=== PATIENT | male | born 1950 | race Caucasian/White ===

== ENCOUNTER 2017-09-03 04:28 | Inpatient (IN) ==
[2017-09-03] MEDS ORDERED: DIAZEPAM 5 MG TABLET PO ONE (06:00)
[2017-09-03] MEDS ORDERED: diphenhydrAMINE CAP 25 MG CAPSULE PO ONE (06:00)
[2017-09-03] MEDS ORDERED: ASPIRIN 325 MG TABLET PO ONE (06:00)
[2017-09-03] MEDS ORDERED: POTASSIUM CHLORIDE RIDER 10 MEQ in PREMIX 1 EACH IV PRN (06:00)
[2017-09-03] MEDS ORDERED: MAGNESIUM SULF RIDER 2 GM in PREMIX 1 EACH IV PRN (06:00)
[2017-09-03] MEDS ORDERED: DIAZEPAM 5 MG TABLET ONE (06:36)
[2017-09-03] MEDS ORDERED: diphenhydrAMINE CAP 25 MG CAPSULE ONE (06:37)
[2017-09-03] MEDS: SODIUM CHLORIDE 0.9% 1,000 ML IV SCH ×3 (06:50→14:24)
[2017-09-03 06:53] LABS: Basophils # 0.1 10*3/uL (0.0-0.2); Basophils % 0.5 % (0.0-0.8); Eosinophils # 0.4 10*3/uL (0.0-0.87); Eosinophils % 3.4 % (0.00-10.9); Hematocrit 41.5 VOL% (42.0-52.0); Hemoglobin 14.5 GM/DL (14.0-18.0); Immature Granulocytes % 0.7 %; Immature Granulocytes Absolute 0.09 #; Lymphocytes # 1.7 10*3/uL (1.4-4.0); Lymphocytes % 13.8 % (21.2-54.2); Mean Corpuscular HGB Conc 34.9 GM/DL (32-36); Mean Corpuscular Hemoglobin 31 PG (27-34); Mean Corpuscular Volume 89.4 FL (87-102); Mean Platelet Volume 10.3 FL (9.6-12.0); Monocytes # 0.9 10*3/uL (0.11-0.8); Monocytes % 6.8 % (1.7-12.7); Neutrophils # 9.4 10*3/uL (1.4-7.4); Neutrophils % 74.8 % (38.7-73.9); Platelet Count 284 T/CUMM (130-400); Red Blood Count 4.64 MC/CUMM (3.8-5.5); Red Cell Distribution Width 13.8 % (9.3-17.3); White Blood Count 12.6 T/CUMM (4-12)
[2017-09-03] MEDS ORDERED: fentaNYL 100 MCG/2 ML VIAL ONE (07:01)
[2017-09-03] MEDS ORDERED: MIDAZOLAM 2 MG/2 ML VIAL ONE (07:01)
[2017-09-03] MEDS ORDERED: LIDOCAINE 1% 20 ML VIAL ONE (07:01)
[2017-09-03] MEDS ORDERED: VERAPAMIL 5 MG/2 ML VIAL ONE (07:06)
[2017-09-03] MEDS ORDERED: NITROGLYCERIN DRIP 50 MG/250 ML BOTTLE IV ONE (07:06)
[2017-09-03] MEDS ORDERED: DEXTROSE 50% 25 GM/50 ML VIAL IV PRN ×2 (07:37→10:20)
[2017-09-03] MEDS ORDERED: ACETAMINOPHEN 325 MG TABLET PO PRN (07:37)
[2017-09-03] MEDS ORDERED: GLUCAGON 1 MG VIAL IM PRN ×2 (07:37→10:20)
[2017-09-03] MEDS ORDERED: ZALEPLON 5 MG CAPSULE PO PRN (07:47)
[2017-09-03] MEDS ORDERED: ALUMINUM/MAGNES/SIMETH MAX STR 30 ML UDCUP PO PRN (07:47)
[2017-09-03] MEDS ORDERED: ASPIRIN EC 81 MG TABLET PO SCH (09:00)
[2017-09-03] MEDS ORDERED: SAW PALMETTO FRUIT 450 MG PO SCH (09:00)
[2017-09-03] MEDS ORDERED: ACETAMINOPHEN 325 MG TABLET ONE (09:45)
[2017-09-03] MEDS ORDERED: ALBUTEROL 2.5 MG/3 ML NEB RESP TX PRN (13:00)
[2017-09-03] MEDS ORDERED: PNEUMOCOCCAL VACCINE (13 VALENT) 0.5 ML SYRINGE IM ONE (13:00)
[2017-09-03] MEDS: tiZANidine 4 MG TABLET PO SCH ×3 (13:02→20:41)
[2017-09-03] MEDS: INSULIN REGULAR 100 UNIT/ML SUBCUT SCH ×3 (13:13→21:02)
[2017-09-03] MEDS: LISINOPRIL 5 MG TABLET PO SCH ×2 (13:34→20:41)
[2017-09-03] MEDS: ASPIRIN EC 81 MG TABLET PO SCH (13:35)
[2017-09-03] MEDS: MAGNESIUM OXIDE 400 MG TABLET PO SCH (13:35)
[2017-09-03] MEDS: METOPROLOL TARTRATE 25 MG TABLET PO SCH ×2 (13:35→20:41)
[2017-09-03] MEDS: MONTELUKAST 10 MG TABLET PO SCH (13:35)
[2017-09-03] MEDS: BUDESONIDE/FORMOTEROL 160-4.5 INHALER 6 GM INH SCH ×2 (13:37→20:43)
[2017-09-03 15:00] LABS: Basophils % 0.4 % (0.0-0.8); Eosinophils # 0.4 10*3/uL (0.0-0.87); Eosinophils % 4.4 % (0.00-10.9); Hematocrit 39.2 VOL% (42.0-52.0); Hemoglobin 13.5 GM/DL (14.0-18.0); Immature Granulocytes % 0.8 %; Immature Granulocytes Absolute 0.08 #; Lymphocytes # 1.7 10*3/uL (1.4-4.0); Mean Corpuscular HGB Conc 34.4 GM/DL (32-36); Mean Corpuscular Hemoglobin 31 PG (27-34); Mean Corpuscular Volume 90.7 FL (87-102); Mean Platelet Volume 10.5 FL (9.6-12.0); Monocytes # 0.7 10*3/uL (0.11-0.8); Monocytes % 7.7 % (1.7-12.7); Neutrophils # 6.6 10*3/uL (1.4-7.4); Neutrophils % 68.7 % (38.7-73.9); Platelet Count 273 T/CUMM (130-400); Red Blood Count 4.32 MC/CUMM (3.8-5.5); Red Cell Distribution Width 13.6 % (9.3-17.3); White Blood Count 9.6 T/CUMM (4-12)
[2017-09-03] MEDS ORDERED: HYDROCORTISONE 1% CREAM 28 GM TUBE TOP PRN (15:05)
[2017-09-03 15:28] LABS: Alanine Aminotransferase 23 U/L (16-61); Albumin 3.6 G/DL (3.4-5.0); Alkaline Phosphatase 53 U/L (45-117); Aspartate Amino Transferase 17 U/L (0-37); Bilirubin,Total < 0.39 MG/DL (0.2-1.0); Blood Urea Nitrogen 21 MG/DL (7-18); Calcium 8.6 MG/DL (8.5-10.1); Glucose 90 MG/DL (74-106); Osmolality,Calculated 277.7 MOS/KG (273-304); Potassium 4.4 MMOL/L (3.5-5.1); Sodium 138 MMOL/L (136-145); Total Protein 6.9 G/DL (6.4-8.3)
[2017-09-03] MEDS: CHLORHEXIDINE 4% SOLN 118 ML BOTTLE TOP SCH ×2 (16:15→20:43)
[2017-09-03] MEDS: CHLORHEXIDINE 0.12% ORAL RINSE 60 ML BOTTLE SWISH/SPIT SCH (20:43)
[2017-09-03] MEDS ORDERED: CLORAZEPATE 3.75 MG TABLET PO ONE (20:46)
[2017-09-03] MEDS ORDERED: ATORVASTATIN 40 MG TABLET PO SCH (21:00)
[2017-09-04 03:04] LABS: ABG HCO3 24.4 MMOL/L (20-26); ABG Oxygen Saturation 95.8 % (95-100); ABG PCO2 39.3 MM HG (35-48); ABG PH 7.404 (7.35-7.45); ABG PO2 77.4 MM HG (80-95)
[2017-09-04] MEDS ORDERED: PAPAVERINE 60 MG/2 ML VIAL ONE (04:40)
[2017-09-04] MEDS ORDERED: VANCOMYCIN 1,000 MG VIAL ONE (04:40)
[2017-09-04 05:20] LABS: Basophils # 0.1 10*3/uL (0.0-0.2); Basophils % 0.7 % (0.0-0.8); Eosinophils # 0.5 10*3/uL (0.0-0.87); Eosinophils % 4.3 % (0.00-10.9); Hematocrit 45.1 VOL% (42.0-52.0); Hemoglobin 15.7 GM/DL (14.0-18.0); Immature Granulocytes % 0.8 %; Lymphocytes # 1.8 10*3/uL (1.4-4.0); Lymphocytes % 14.9 % (21.2-54.2); Mean Corpuscular HGB Conc 34.8 GM/DL (32-36); Mean Corpuscular Hemoglobin 32 PG (27-34); Mean Corpuscular Volume 90.4 FL (87-102); Mean Platelet Volume 10.2 FL (9.6-12.0); Monocytes # 0.8 10*3/uL (0.11-0.8); Monocytes % 6.2 % (1.7-12.7); Neutrophils # 8.8 10*3/uL (1.4-7.4); Neutrophils % 73.1 % (38.7-73.9); Platelet Count 290 T/CUMM (130-400); Red Blood Count 4.99 MC/CUMM (3.8-5.5); Red Cell Distribution Width 13.6 % (9.3-17.3); White Blood Count 12.1 T/CUMM (4-12)
[2017-09-04] MEDS ORDERED: FAMOTIDINE 20 MG TABLET PO ONE (05:30)
[2017-09-04] MEDS ORDERED: LORazepam 1 MG TABLET PO ONE (05:30)
[2017-09-04] MEDS: LISINOPRIL 5 MG TABLET PO SCH ×2 (05:36→08:07)
[2017-09-04] MEDS: METOPROLOL TARTRATE 25 MG TABLET PO SCH ×2 (05:36→08:05)
[2017-09-04] MEDS: MAGNESIUM OXIDE 400 MG TABLET PO SCH ×2 (05:37→08:05)
[2017-09-04] MEDS: CHLORHEXIDINE 4% SOLN 118 ML BOTTLE TOP SCH ×2 (05:40→08:04)
[2017-09-04] MEDS: CHLORHEXIDINE 0.12% ORAL RINSE 60 ML BOTTLE SWISH/SPIT SCH ×3 (05:40→22:26)
[2017-09-04] MEDS ORDERED: TRANEXAMIC ACID 1,000 MG/10 ML VIAL IV ONE (05:42)
[2017-09-04] MEDS ORDERED: SUFentanil 250 MCG/5 ML AMP ONE (05:53)
[2017-09-04] MEDS ORDERED: MIDAZOLAM 10 MG/2 ML VIAL ONE ×2 (05:53)
[2017-09-04 05:55] LABS: PT Patient Result 10.5 SECS; Partial Thromboplastin Time 28.2 SECS (0-40)
[2017-09-04 05:56] LABS: Calcium 9.1 MG/DL (8.5-10.1); Magnesium 2.1 MG/DL (1.8-2.4); Osmolality,Calculated 274.8 MOS/KG (273-304); Potassium 4.9 MMOL/L (3.5-5.1)
[2017-09-04] MEDS ORDERED: CEFUROXIME INJ 1,500 MG in SYRINGE 1 EACH IV ONE (06:00)
[2017-09-04 07:31] LABS: ABG Base Excess -0.5 MMOL/L (-2.5-2.5); ABG PCO2 35.5 MM HG (35-48); ABG PH 7.425 (7.35-7.45); Glucose Heart Surgery 117 MG/DL (74-106); Hematocrit Heart Surgery 42.7 PERCENT (42-52); Hemoglobin Heart Surgery 13.9 G/DL (14.0-18.0); Ionized Calcium Arterial 1.08 MMOL/L (1.21-1.46); PCO2 Patient Temp Arterial 35.5 MMHG; PH Patient Temp Arterial 7.425; Patient Temperature 37 CELCIUS; Potassium Heart/CVR 4.3 MMOL/L (3.5-5.1); Sodium Heart/CVR 135 MMOL/L (135-145)
[2017-09-04] MEDS: ASPIRIN EC 81 MG TABLET PO SCH (08:04)
[2017-09-04] MEDS: INSULIN REGULAR 100 UNIT/ML SUBCUT SCH (08:04)
[2017-09-04] MEDS: MONTELUKAST 10 MG TABLET PO SCH (08:08)
[2017-09-04] MEDS: tiZANidine 4 MG TABLET PO SCH (08:08)
[2017-09-04] MEDS: BUDESONIDE/FORMOTEROL 160-4.5 INHALER 6 GM INH SCH (08:08)
[2017-09-04 08:30] LABS: Apearance,Urine CLEAR (Clear); Bilirubin,Urine Negative (Negative); Blood, Urine Small mg/dL (Negative); Glucose,Urine (UA) Negative (Negative); Ketones,Urine 20 mg/dL (Negative); Mucus,Urine Occasional /LPF (Occasional); Nitrite,Urine Negative (Negative); Protein,Urine Negative; RBC,Urine 1 /HPF (0-4); Squamous Epithelial Cell,Urine Occasional /HPF (0-10); Urine Color Yellow (Yellow); Urine Specific Gravity 1.017 (1.001-1.035); Urine Urobilinogen < 2.0 EU/DL (0.2-1.0); WBC,Urine 1 /HPF (0-6)
[2017-09-04] MEDS ORDERED: POTASSIUM CHLORIDE RIDER 100 ML IV ONE (08:54)
[2017-09-04 09:00] LABS: Hemoglobin Heart Surgery 9.4 G/DL (14.0-18.0); PCO2 Patient Temp Venous 46.2 MM HG; PH Patient Temp Venous 7.351; PO2 Patient Temp Venous 37.2 MM HG; Potassium Heart/CVR 5.5 MMOL/L (3.5-5.1); VBG Base Excess -0.1 MEQ/L (0-4); VBG Oxygen Saturation 74.4 %; VBG PCO2 50.9 MMHG (41-51); VBG PH 7.323; VBG PO2 42.7 MMHG (17-40)
[2017-09-04 09:31] LABS: Hematocrit Heart Surgery 32.4 PERCENT (42-52); Hemoglobin Heart Surgery 10.5 G/DL (14.0-18.0); PCO2 Patient Temp Venous 39.5 MM HG; PH Patient Temp Venous 7.398; PO2 Patient Temp Venous 34.6 MM HG; VBG Base Excess -0.3 MEQ/L (0-4); VBG HCO3 23.8 MEQ/L (24-28); VBG Oxygen Saturation 75.8 %; VBG PCO2 45.7 MMHG (41-51); VBG PH 7.355; VBG PO2 42.7 MMHG (17-40)
[2017-09-04 09:35] LABS: Potassium Heart/CVR 6.3 MMOL/L (3.5-5.1)
[2017-09-04] MEDS ORDERED: INSULIN REGULAR DRIP 100 ML IV ONE (09:56)
[2017-09-04 10:02] LABS: Hematocrit Heart Surgery 34.6 PERCENT (42-52); Hemoglobin Heart Surgery 11.2 G/DL (14.0-18.0); PCO2 Patient Temp Venous 45.6 MM HG; PH Patient Temp Venous 7.354; PO2 Patient Temp Venous 34.2 MM HG; Potassium Heart/CVR 6.2 MMOL/L (3.5-5.1); VBG Base Excess -0.4 MEQ/L (0-4); VBG HCO3 23.4 MEQ/L (24-28); VBG Oxygen Saturation 61.7 %; VBG PCO2 45.6 MMHG (41-51); VBG PH 7.354; VBG PO2 34.2 MMHG (17-40)
[2017-09-04 10:25] LABS: ABG Base Excess -2.5 MMOL/L (-2.5-2.5); ABG HCO3 22.4 MMOL/L (20-26); ABG Oxygen Saturation 99.9 % (95-100); ABG PCO2 41.9 MM HG (35-48); ABG PH 7.349 (7.35-7.45); ABG TCO2 20.6 MMOL/L (23-27); Glucose Heart Surgery 206 MG/DL (74-106); Hematocrit Heart Surgery 36.3 PERCENT (42-52); Hemoglobin Heart Surgery 11.8 G/DL (14.0-18.0); Ionized Calcium Arterial 1.36 MMOL/L (1.21-1.46); PCO2 Patient Temp Arterial 41.9 MMHG; PH Patient Temp Arterial 7.349; Patient Temperature 37 CELCIUS; Potassium Heart/CVR 5.1 MMOL/L (3.5-5.1); Sodium Heart/CVR 131 MMOL/L (135-145)
[2017-09-04] MEDS ORDERED: PHENYLEPHRINE DRIP 20 MG/250 ML PREMIX IV ONE (11:09)
[2017-09-04] MEDS ORDERED: LACTATED RINGERS 1,000 ML IV ONE (11:09)
[2017-09-04] MEDS ORDERED: ePHEDrine 50 MG/ML AMP ONE (11:09)
[2017-09-04] MEDS ORDERED: NITROGLYCERIN DRIP 50 MG/250 ML BOTTLE IV ONE (11:09)
[2017-09-04] MEDS ORDERED: ETOMIDATE 20 MG/10 ML VIAL IV ONE (11:09)
[2017-09-04] MEDS ORDERED: CALCIUM CHLORIDE 1,000 MG/10 ML VIAL IV ONE (11:09)
[2017-09-04] MEDS ORDERED: SODIUM CHLORIDE 0.9% 2,000 ML IV ONE (11:09)
[2017-09-04] MEDS ORDERED: ESMOLOL 100 MG/10 ML VIAL IV ONE (11:09)
[2017-09-04] MEDS ORDERED: SODIUM CHLORIDE 0.9% 250 ML IV ONE (11:09)
[2017-09-04] MEDS ORDERED: HEPARIN/NACL 0.9% 2 UNITS/ML 500 ML IV ONE (11:09)
[2017-09-04] MEDS ORDERED: SEVOFLURANE 1 UNIT/15 MINUTE INH ONE (11:10)
[2017-09-04] MEDS ORDERED: MINERAL OIL/PETROLATUM OPH OINT 3.5 GM TUBE ONE (11:10)
[2017-09-04] MEDS ORDERED: PROTAMINE SULFATE 50 MG/5 ML VIAL IV ONE ×2 (11:13→11:52)
[2017-09-04] MEDS: SODIUM CHLORIDE 0.45% 1,000 ML IV SCH (11:15)
[2017-09-04] MEDS ORDERED: CALCIUM CHLORIDE 1,000 MG/10 ML SYRINGE IV PRN (11:17)
[2017-09-04] MEDS ORDERED: NITROPRUSSIDE 100 MG in DEXTROSE 5% 250 ML IV PRN (11:17)
[2017-09-04] MEDS ORDERED: MAGNESIUM SULF RIDER 4 GM in PREMIX 1 EACH IV PRN (11:17)
[2017-09-04] MEDS ORDERED: ACETAMINOPHEN 650 MG SUPP RECTAL PRN (11:17)
[2017-09-04] MEDS ORDERED: POTASSIUM CHLORIDE RIDER 20 MEQ in PREMIX 1 EACH IV PRN (11:17)
[2017-09-04] MEDS ORDERED: PHENYLEPHRINE DRIP 40 MG/250 ML PREMIX IV PRN (11:17)
[2017-09-04] MEDS ORDERED: POTASSIUM CHLORIDE RIDER 10 MEQ in PREMIX 1 EACH IV PRN (11:17)
[2017-09-04] MEDS ORDERED: ONDANSETRON 4 MG/2 ML VIAL IV PRN (11:17)
[2017-09-04] MEDS ORDERED: VECURONIUM 10 MG VIAL IV PRN ×2 (11:17)
[2017-09-04] MEDS ORDERED: LACTATED RINGERS 250 ML IV PRN (11:17)
[2017-09-04] MEDS ORDERED: MORPHINE 10 MG/1 ML VIAL IV PRN (11:17)
[2017-09-04] MEDS ORDERED: MIDAZOLAM 2 MG/2 ML VIAL IV PRN (11:17)
[2017-09-04] MEDS ORDERED: MAGNESIUM SULF RIDER 2 GM in PREMIX 1 EACH IV PRN (11:17)
[2017-09-04] MEDS ORDERED: INSULIN REGULAR 100 UNIT/ML IV ONE (11:17)
[2017-09-04] MEDS ORDERED: INSULIN REGULAR 100 UNIT/ML IV PRN (11:17)
[2017-09-04] MEDS ORDERED: DEXTROSE 50% 25 GM/50 ML VIAL IV PRN ×2 (11:17)
[2017-09-04 11:23] LABS: ABG HCO3 22.7 MMOL/L (20-26); ABG Oxygen Saturation 95.4 % (95-100); ABG PCO2 42.4 MM HG (35-48); ABG PH 7.353 (7.35-7.45); ABG PO2 78.4 MM HG (80-95); ABG TCO2 21.2 MMOL/L (23-27); Glucose Heart Surgery 151 MG/DL (74-106); Hematocrit Heart Surgery 34.4 PERCENT (42-52); Hemoglobin Heart Surgery 11.1 G/DL (14.0-18.0); Potassium Heart/CVR 4.2 MMOL/L (3.5-5.1)
[2017-09-04] MEDS ORDERED: SODIUM CHLORIDE 0.45% 1,000 ML IV SCH (11:30)
[2017-09-04 11:32] LABS: Basophils # 0.1 10*3/uL (0.0-0.2); Basophils % 0.5 % (0.0-0.8); Eosinophils # 0.3 10*3/uL (0.0-0.87); Eosinophils % 1.7 % (0.00-10.9); Hematocrit 34.1 VOL% (42.0-52.0); Immature Granulocytes % 1.1 %; Immature Granulocytes Absolute 0.17 #; Lymphocytes # 1.2 10*3/uL (1.4-4.0); Mean Corpuscular HGB Conc 34.3 GM/DL (32-36); Mean Corpuscular Hemoglobin 32 PG (27-34); Mean Corpuscular Volume 92.4 FL (87-102); Mean Platelet Volume 10.2 FL (9.6-12.0); Monocytes # 0.7 10*3/uL (0.11-0.8); Monocytes % 4.4 % (1.7-12.7); Neutrophils # 13.1 10*3/uL (1.4-7.4); Neutrophils % 84.3 % (38.7-73.9); Red Cell Distribution Width 13.4 % (9.3-17.3); White Blood Count 15.5 T/CUMM (4-12)
[2017-09-04 11:35] LABS: Hemoglobin 11.7 GM/DL (14.0-18.0); Platelet Count 251 T/CUMM (130-400); Red Blood Count 3.69 MC/CUMM (3.8-5.5)
[2017-09-04 11:36] LABS: INR 1.1; PT Patient Result 11.8 SECS; Partial Thromboplastin Time 28.5 SECS (0-40)
[2017-09-04 11:45] LABS: CKMB % 9.2 %
[2017-09-04] MEDS: ALBUMIN 5% 12.5 GM in PREMIX 1 EACH IV PRN ×5 (11:45→21:10)
[2017-09-04 11:46] LABS: Troponin I Only 2.87 NG/ML (0.00-0.045)
[2017-09-04 11:53] LABS: Albumin 3.1 G/DL (3.4-5.0); Bilirubin,Total 0.8 MG/DL (0.2-1.0); Calcium 8.8 MG/DL (8.5-10.1); Potassium 4.6 MMOL/L (3.5-5.1); Total Protein 5.8 G/DL (6.4-8.3)
[2017-09-04] MEDS: LACTATED RINGERS 1,000 ML IV PRN ×3 (12:00→16:32)
[2017-09-04] MEDS: KETOROLAC 30 MG/1 ML VIAL IV SCH ×3 (13:05→22:32)
[2017-09-04 13:16] LABS: ABG Base Excess 0.5 MMOL/L (-2.5-2.5); ABG HCO3 25.5 MMOL/L (20-26); ABG Oxygen Saturation 96.5 % (95-100); ABG PCO2 42.4 MM HG (35-48); ABG PH 7.397 (7.35-7.45); ABG TCO2 26.8 MMOL/L (23-27); Glucose Heart Surgery 134 MG/DL (74-106); Hemoglobin Heart Surgery 12.8 G/DL (14.0-18.0); Potassium Heart/CVR 4.4 MMOL/L (3.5-5.1)
[2017-09-04] MEDS: MORPHINE 2 MG/1 ML SYRINGE IV PRN (14:50)
[2017-09-04] MEDS: MIDAZOLAM 10 MG/2 ML VIAL IV PRN ×3 (14:58→20:15)
[2017-09-04] MEDS ORDERED: PROPOFOL 1,000 MG/100 ML BOTTLE IV ONE (15:05)
[2017-09-04] MEDS: PROPOFOL 1,000 MG/100 ML BOTTLE IV SCH ×2 (15:48→20:53)
[2017-09-04 16:10] LABS: ABG Base Excess -0.8 MMOL/L (-2.5-2.5); ABG HCO3 24.6 MMOL/L (20-26); ABG Oxygen Saturation 97.6 % (95-100); ABG PCO2 43.8 MM HG (35-48); ABG PH 7.368 (7.35-7.45); ABG PO2 106.1 MM HG (80-95); Glucose Heart Surgery 158 MG/DL (74-106); Hemoglobin Heart Surgery 12.5 G/DL (14.0-18.0); Potassium Heart/CVR 4.7 MMOL/L (3.5-5.1)
[2017-09-04] MEDS: SODIUM CHLORIDE 0.9% 1,000 ML IV SCH (17:12)
[2017-09-04] MEDS ORDERED: AMIODARONE INJ 150 MG in DEXTROSE 5% 100 ML IV ONE (17:48)
[2017-09-04] MEDS ORDERED: AMIODARONE 450 MG/9 ML VIAL IV ONE (17:53)
[2017-09-04] MEDS ORDERED: AMIODARONE 150 MG/3 ML VIAL ONE (17:53)
[2017-09-04] MEDS ORDERED: AMIODARONE INJ 450 MG in DEXTROSE 5% 241 ML IV SCH (18:00)
[2017-09-04 18:44] LABS: ABG Base Excess -0.6 MMOL/L (-2.5-2.5); ABG HCO3 24.4 MMOL/L (20-26); ABG PCO2 41.5 MM HG (35-48); ABG PH 7.387 (7.35-7.45); ABG TCO2 25.7 MMOL/L (23-27); Glucose Heart Surgery 188 MG/DL (74-106); Hemoglobin Heart Surgery 12.8 G/DL (14.0-18.0); Potassium Heart/CVR 4.7 MMOL/L (3.5-5.1)
[2017-09-04] MEDS: INSULIN REGULAR DRIP 100 ML IV SCH (18:53)
[2017-09-04] MEDS ORDERED: DOBUTamine 500 MG/250 ML PREMIX IV SCH (19:30)
[2017-09-04 20:04] LABS: ABG Base Excess -2.5 MMOL/L (-2.5-2.5); ABG HCO3 22.4 MMOL/L (20-26); ABG Oxygen Saturation 96.7 % (95-100); ABG PCO2 39.3 MM HG (35-48); ABG PH 7.374 (7.35-7.45); ABG PO2 87.9 MM HG (80-95); ABG TCO2 23.6 MMOL/L (23-27); Glucose Heart Surgery 181 MG/DL (74-106); Hemoglobin Heart Surgery 13.1 G/DL (14.0-18.0); Potassium Heart/CVR 4.3 MMOL/L (3.5-5.1)
[2017-09-04] MEDS: CEFUROXIME INJ 1,500 MG in SYRINGE 1 EACH IV SCH (20:10)
[2017-09-04 20:38] LABS: CKMB % 7.2 %
[2017-09-04 20:40] LABS: Troponin I Only 3.64 NG/ML (0.00-0.045)
[2017-09-05] MEDS ORDERED: FUROSEMIDE 40 MG/4 ML VIAL IV ONE (00:08)
[2017-09-05] MEDS: ALBUMIN 5% 12.5 GM in PREMIX 1 EACH IV PRN ×3 (00:13→09:52)
[2017-09-05] MEDS: PROPOFOL 1,000 MG/100 ML BOTTLE IV SCH ×2 (00:53→05:19)
[2017-09-05 03:03] LABS: ABG Base Excess 0.8 MMOL/L (-2.5-2.5); ABG HCO3 25.1 MMOL/L (20-26); ABG Oxygen Saturation 96.9 % (95-100); ABG PCO2 40.4 MM HG (35-48); ABG PH 7.408 (7.35-7.45); ABG PO2 86.2 MM HG (80-95); ABG TCO2 21.8 MMOL/L (23-27); Glucose Heart Surgery 140 MG/DL (74-106); Hematocrit Heart Surgery 44.6 PERCENT (42-52); Hemoglobin Heart Surgery 14.6 G/DL (14.0-18.0); Potassium Heart/CVR 3.9 MMOL/L (3.5-5.1)
[2017-09-05 03:14] LABS: Basophils % 0.1 % (0.0-0.8); Hematocrit 32.9 VOL% (42.0-52.0); Hemoglobin 11.3 GM/DL (14.0-18.0); Immature Granulocytes % 0.7 %; Immature Granulocytes Absolute 0.14 #; Lymphocytes # 0.7 10*3/uL (1.4-4.0); Lymphocytes % 3.5 % (21.2-54.2); Mean Corpuscular HGB Conc 34.3 GM/DL (32-36); Mean Corpuscular Hemoglobin 31 PG (27-34); Mean Corpuscular Volume 90.9 FL (87-102); Mean Platelet Volume 10.5 FL (9.6-12.0); Monocytes # 0.8 10*3/uL (0.11-0.8); Monocytes % 4.2 % (1.7-12.7); Neutrophils # 17.5 10*3/uL (1.4-7.4); Neutrophils % 91.5 % (38.7-73.9); Platelet Count 251 T/CUMM (130-400); Red Blood Count 3.62 MC/CUMM (3.8-5.5); Red Cell Distribution Width 13.6 % (9.3-17.3); White Blood Count 19.1 T/CUMM (4-12)
[2017-09-05 03:29] LABS: Albumin 4.1 G/DL (3.4-5.0); Bilirubin,Direct 0.12 MG/DL (0.0-0.20); Bilirubin,Total 0.5 MG/DL (0.2-1.0); Calcium 8.6 MG/DL (8.5-10.1); Magnesium 1.8 MG/DL (1.8-2.4); Osmolality,Calculated 277.8 MOS/KG (273-304); Potassium 4.1 MMOL/L (3.5-5.1); Total Protein 6.6 G/DL (6.4-8.3)
[2017-09-05 04:12] LABS: Band Neutrophils 4 % (0-10); Lymphocytes 5 % (20-55); Platelet Estimate Normal; Segmented Neutrophils 85 % (50-85); Total Cells Counted 100
[2017-09-05 04:18] LABS: CKMB % 5.6 %
[2017-09-05 04:23] LABS: Troponin I Only 2.69 NG/ML (0.00-0.045)
[2017-09-05] MEDS: MORPHINE 2 MG/1 ML SYRINGE IV PRN ×2 (04:59→07:23)
[2017-09-05] MEDS ORDERED: HYDROCORTISONE 1% CREAM 28 GM TUBE TOP PRN ×2 (06:17→11:33)
[2017-09-05] MEDS ORDERED: ALBUTEROL 2.5 MG/3 ML NEB RESP TX PRN ×2 (06:17→11:33)
[2017-09-05] MEDS ORDERED: ZALEPLON 5 MG CAPSULE PO PRN ×2 (06:17→11:33)
[2017-09-05] MEDS ORDERED: DEXMEDETOMIDINE 200 MCG in SODIUM CHLORIDE 0.9% 48 ML IV SCH (06:30)
[2017-09-05] MEDS: CEFUROXIME INJ 1,500 MG in SYRINGE 1 EACH IV SCH (06:45)
[2017-09-05] MEDS: KETOROLAC 30 MG/1 ML VIAL IV SCH ×3 (06:46→17:19)
[2017-09-05] MEDS ORDERED: ALBUTEROL/IPRATROPIUM 3 ML NEB RESP TX PRN (07:45)
[2017-09-05] MEDS ORDERED: DOCUSATE SODIUM 100 MG CAPSULE PO PRN (07:57)
[2017-09-05] MEDS: MONTELUKAST 10 MG TABLET PO SCH (08:03)
[2017-09-05] MEDS: tiZANidine 4 MG TABLET PO SCH ×3 (08:04→21:22)
[2017-09-05] MEDS: ASPIRIN EC 81 MG TABLET PO SCH (08:04)
[2017-09-05] MEDS: ALBUTEROL/IPRATROPIUM 3 ML NEB RESP TX SCH ×4 (08:08→21:01)
[2017-09-05] MEDS ORDERED: ALBUTEROL/IPRATROPIUM 3 ML NEB RESP TX ONE (08:10)
[2017-09-05] MEDS: CHLORHEXIDINE 0.12% ORAL RINSE 60 ML BOTTLE SWISH/SPIT SCH ×2 (08:28→21:35)
[2017-09-05] MEDS: BUDESONIDE/FORMOTEROL 160-4.5 INHALER 6 GM INH SCH ×2 (08:40→21:34)
[2017-09-05] MEDS ORDERED: DOCUSATE SODIUM 100 MG CAPSULE PO SCH (09:00)
[2017-09-05] MEDS ORDERED: MAGNESIUM OXIDE 400 MG TABLET PO SCH (09:00)
[2017-09-05] MEDS ORDERED: METOPROLOL TARTRATE 25 MG TABLET PO SCH ×2 (09:00→21:00)
[2017-09-05] MEDS: LACTATED RINGERS 1,000 ML IV PRN (09:12)
[2017-09-05] MEDS ORDERED: MAGNESIUM SULF RIDER 4 GM in PREMIX 1 EACH IV PRN (11:50)
[2017-09-05] MEDS ORDERED: MAGNESIUM SULF RIDER 2 GM in PREMIX 1 EACH IV PRN (11:50)
[2017-09-05] MEDS ORDERED: MORPHINE 2 MG/1 ML SYRINGE IV PRN (11:50)
[2017-09-05] MEDS ORDERED: GLUCAGON 1 MG VIAL IM PRN (11:50)
[2017-09-05] MEDS ORDERED: MAGNESIUM HYDROXIDE SUSP 30 ML UDCUP PO PRN (11:50)
[2017-09-05] MEDS ORDERED: ALUMINUM/MAGNES/SIMETH MAX STR 30 ML UDCUP PO PRN (11:50)
[2017-09-05] MEDS ORDERED: POTASSIUM CHLORIDE 20 MEQ TABLET PO PRN (11:50)
[2017-09-05] MEDS ORDERED: DEXTROSE 50% 25 GM/50 ML VIAL IV PRN (11:50)
[2017-09-05] MEDS ORDERED: ONDANSETRON 4 MG/2 ML VIAL IV PRN (11:50)
[2017-09-05] MEDS ORDERED: ACETAMINOPHEN 325 MG TABLET PO PRN (11:50)
[2017-09-05] MEDS ORDERED: KETOROLAC 30 MG/1 ML VIAL IV SCH (12:00)
[2017-09-05] MEDS ORDERED: SODIUM CHLOR 0.45% KCL 20 MEQ 20 MEQ/1,000 ML BAG IV SCH (12:00)
[2017-09-05] MEDS: oxyCODONE/ACETAMINOPHEN 5-325 MG TABLET PO PRN ×2 (14:32→21:33)
[2017-09-05] MEDS ORDERED: tiZANidine 4 MG TABLET PO SCH (15:00)
[2017-09-05] MEDS ORDERED: ATORVASTATIN 40 MG TABLET PO SCH (21:00)
[2017-09-05] MEDS ORDERED: BUDESONIDE/FORMOTEROL 160-4.5 INHALER 6 GM INH SCH (21:00)
[2017-09-05] MEDS: ATORVASTATIN 40 MG TABLET PO SCH (21:21)
[2017-09-05] MEDS: ZALEPLON 5 MG CAPSULE PO PRN ×2 (21:30→22:51)
[2017-09-06] MEDS: ALBUTEROL/IPRATROPIUM 3 ML NEB RESP TX SCH ×7 (00:07→23:48)
[2017-09-06] MEDS: KETOROLAC 30 MG/1 ML VIAL IV SCH ×4 (00:11→18:13)
[2017-09-06] MEDS: oxyCODONE/ACETAMINOPHEN 5-325 MG TABLET PO PRN ×3 (01:36→21:42)
[2017-09-06] MEDS ORDERED: FUROSEMIDE 40 MG/4 ML VIAL IV ONE (06:00)
[2017-09-06] MEDS: SODIUM CHLORIDE 0.45% 1,000 ML IV SCH (07:41)
[2017-09-06] MEDS: INSULIN REGULAR DRIP 100 ML IV SCH (07:59)
[2017-09-06 08:17] LABS: Basophils % 0.1 % (0.0-0.8); Eosinophils # 0.1 10*3/uL (0.0-0.87); Eosinophils % 0.4 % (0.00-10.9); Hematocrit 32.1 VOL% (42.0-52.0); Hemoglobin 10.7 GM/DL (14.0-18.0); Immature Granulocytes Absolute 0.14 #; Lymphocytes # 1.8 10*3/uL (1.4-4.0); Lymphocytes % 13.4 % (21.2-54.2); Mean Corpuscular HGB Conc 33.3 GM/DL (32-36); Mean Corpuscular Hemoglobin 31 PG (27-34); Mean Platelet Volume 11.1 FL (9.6-12.0); Monocytes # 0.8 10*3/uL (0.11-0.8); Neutrophils # 10.7 10*3/uL (1.4-7.4); Neutrophils % 79.1 % (38.7-73.9); Platelet Count 204 T/CUMM (130-400); Red Blood Count 3.45 MC/CUMM (3.8-5.5); Red Cell Distribution Width 14.1 % (9.3-17.3); White Blood Count 13.5 T/CUMM (4-12)
[2017-09-06] MEDS: FERROUS SULFATE 325 MG TABLET PO SCH (08:25)
[2017-09-06] MEDS: DOCUSATE SODIUM 100 MG CAPSULE PO SCH (08:25)
[2017-09-06] MEDS: ASPIRIN EC 81 MG TABLET PO SCH (08:25)
[2017-09-06] MEDS: MONTELUKAST 10 MG TABLET PO SCH (08:25)
[2017-09-06] MEDS: PANTOPRAZOLE 40 MG TABLET PO SCH (08:25)
[2017-09-06] MEDS: BUDESONIDE/FORMOTEROL 160-4.5 INHALER 6 GM INH SCH ×2 (08:26→21:51)
[2017-09-06] MEDS: tiZANidine 4 MG TABLET PO SCH ×3 (08:26→21:43)
[2017-09-06] MEDS: CHLORHEXIDINE 0.12% ORAL RINSE 60 ML BOTTLE SWISH/SPIT SCH ×2 (08:29→21:47)
[2017-09-06 08:53] LABS: Albumin 3.8 G/DL (3.4-5.0); Bilirubin,Direct 0.13 MG/DL (0.0-0.20); Bilirubin,Indirect 0.4 MG/DL (0.0-1.0); Bilirubin,Total 0.5 MG/DL (0.2-1.0); CKMB % 1.6 %; Calcium 8.3 MG/DL (8.5-10.1); Magnesium 2.1 MG/DL (1.8-2.4); Osmolality,Calculated 287.4 MOS/KG (273-304); Total Protein 6.2 G/DL (6.4-8.3)
[2017-09-06 08:54] LABS: Troponin I Only 1.56 NG/ML (0.00-0.045)
[2017-09-06] MEDS ORDERED: BISACODYL 5 MG TABLET PO PRN (08:55)
[2017-09-06] MEDS ORDERED: MONTELUKAST 10 MG TABLET PO SCH (09:00)
[2017-09-06] MEDS ORDERED: MAGNESIUM OXIDE 400 MG TABLET PO SCH (09:00)
[2017-09-06] MEDS ORDERED: ASPIRIN EC 81 MG TABLET PO SCH (09:00)
[2017-09-06] MEDS ORDERED: CLORAZEPATE 7.5 MG TABLET PO PRN (09:23)
[2017-09-06] MEDS ORDERED: CLORAZEPATE 3.75 MG TABLET PO PRN (09:23)
[2017-09-06] MEDS: METOPROLOL TARTRATE 25 MG TABLET PO SCH ×2 (10:12→21:42)
[2017-09-06] MEDS: ATORVASTATIN 40 MG TABLET PO SCH (21:43)
[2017-09-07] MEDS: KETOROLAC 30 MG/1 ML VIAL IV SCH ×4 (00:39→18:31)
[2017-09-07] MEDS: ZALEPLON 5 MG CAPSULE PO PRN ×2 (00:41→21:32)
[2017-09-07] MEDS: ALBUTEROL/IPRATROPIUM 3 ML NEB RESP TX SCH ×5 (03:07→20:13)
[2017-09-07 05:57] LABS: Basophils % 0.4 % (0.0-0.8); Eosinophils # 0.2 10*3/uL (0.0-0.87); Eosinophils % 2.3 % (0.00-10.9); Hematocrit 31.6 VOL% (42.0-52.0); Hemoglobin 10.5 GM/DL (14.0-18.0); Immature Granulocytes Absolute 0.11 #; Lymphocytes # 1.7 10*3/uL (1.4-4.0); Lymphocytes % 16.6 % (21.2-54.2); Mean Corpuscular HGB Conc 33.2 GM/DL (32-36); Mean Corpuscular Hemoglobin 31 PG (27-34); Mean Platelet Volume 11.3 FL (9.6-12.0); Monocytes # 0.7 10*3/uL (0.11-0.8); Monocytes % 6.8 % (1.7-12.7); Neutrophils # 7.7 10*3/uL (1.4-7.4); Neutrophils % 72.9 % (38.7-73.9); Platelet Count 193 T/CUMM (130-400); Red Blood Count 3.36 MC/CUMM (3.8-5.5); Red Cell Distribution Width 13.8 % (9.3-17.3); White Blood Count 10.5 T/CUMM (4-12)
[2017-09-07 06:28] LABS: Calcium 8.1 MG/DL (8.5-10.1); Magnesium 2.2 MG/DL (1.8-2.4); Osmolality,Calculated 288.4 MOS/KG (273-304); Potassium 4.3 MMOL/L (3.5-5.1)
[2017-09-07 06:38] LABS: Albumin 3.4 G/DL (3.4-5.0); Bilirubin,Direct 0.15 MG/DL (0.0-0.20); Bilirubin,Indirect 0.7 MG/DL (0.0-1.0); Bilirubin,Total 0.8 MG/DL (0.2-1.0); CKMB % 2.2 %; Calcium 8.2 MG/DL (8.5-10.1); Magnesium 2.1 MG/DL (1.8-2.4); Osmolality,Calculated 288.4 MOS/KG (273-304); Potassium 4.5 MMOL/L (3.5-5.1)
[2017-09-07 06:41] LABS: Troponin I Only 0.738 NG/ML (0.00-0.045)
[2017-09-07] MEDS: MONTELUKAST 10 MG TABLET PO SCH (08:59)
[2017-09-07] MEDS: DOCUSATE SODIUM 100 MG CAPSULE PO SCH (08:59)
[2017-09-07] MEDS: FERROUS SULFATE 325 MG TABLET PO SCH (08:59)
[2017-09-07] MEDS: tiZANidine 4 MG TABLET PO SCH ×3 (08:59→21:32)
[2017-09-07] MEDS: METOPROLOL TARTRATE 25 MG TABLET PO SCH (09:00)
[2017-09-07] MEDS: PANTOPRAZOLE 40 MG TABLET PO SCH (09:00)
[2017-09-07] MEDS: CHLORHEXIDINE 0.12% ORAL RINSE 60 ML BOTTLE SWISH/SPIT SCH ×2 (09:00→21:34)
[2017-09-07] MEDS: ASPIRIN EC 81 MG TABLET PO SCH (09:00)
[2017-09-07] MEDS: BUDESONIDE/FORMOTEROL 160-4.5 INHALER 6 GM INH SCH ×2 (09:00→21:34)
[2017-09-07] MEDS: METOPROLOL TARTRATE 50 MG TABLET PO SCH (21:32)
[2017-09-07] MEDS: ATORVASTATIN 40 MG TABLET PO SCH (21:32)
[2017-09-08] MEDS: ALBUTEROL/IPRATROPIUM 3 ML NEB RESP TX SCH ×4 (00:44→11:35)
[2017-09-08] MEDS: KETOROLAC 30 MG/1 ML VIAL IV SCH ×3 (03:10→13:23)
[2017-09-08 06:58] LABS: Calcium 8.2 MG/DL (8.5-10.1); Magnesium 2.1 MG/DL (1.8-2.4); Osmolality,Calculated 285.4 MOS/KG (273-304); Potassium 4.1 MMOL/L (3.5-5.1)
[2017-09-08] MEDS: PANTOPRAZOLE 40 MG TABLET PO SCH (08:55)
[2017-09-08] MEDS: ASPIRIN EC 81 MG TABLET PO SCH (08:55)
[2017-09-08] MEDS: METOPROLOL TARTRATE 50 MG TABLET PO SCH (08:55)
[2017-09-08] MEDS: FERROUS SULFATE 325 MG TABLET PO SCH (08:55)
[2017-09-08] MEDS: tiZANidine 4 MG TABLET PO SCH (08:55)
[2017-09-08] MEDS: DOCUSATE SODIUM 100 MG CAPSULE PO SCH (08:55)
[2017-09-08] MEDS: MONTELUKAST 10 MG TABLET PO SCH (08:56)
[2017-09-08] MEDS: CHLORHEXIDINE 0.12% ORAL RINSE 60 ML BOTTLE SWISH/SPIT SCH (08:56)
[2017-09-08] MEDS: BUDESONIDE/FORMOTEROL 160-4.5 INHALER 6 GM INH SCH (08:59)
[2017-09-08 09:08] VITALS: BP 146/84
[2017-09-09] MEDS ORDERED: PNEUMOCOCCAL VACCINE (13 VALENT) 0.5 ML SYRINGE IM ONE (09:00)
== END 2017-09-08 13:24 | disposition home or self-care (01) | DRG 234 ==
LOC: N.CL 04:28 → N.CC 12:00 → N.TELEN 16:10 → N.CVR 09-04 08:59 → N.TELES 09-05 11:43
PROVIDERS: ADMIT Internal Medicine Cardiovascular Disease; ATTEND Internal Medicine Cardiovascular Disease
PROC: CLCCHCL (ICD-10-PCS; 2017-09-03 07:15)